=== PATIENT | female | born 1955 | race Two or more races ===

== ENCOUNTER 2021-04-20 08:05 | Outpatient (CLI) | payer OTHER | END 2021-04-20 18:57 | disposition home or self-care (01) | LOC: LABW 08:05 | PROVIDERS: ATTEND Internal Medicine | DX: Z01.84 Encounter for antibody response examination (principal) | CPT/HCPCS: 36415; 86480; 86787 ==

== ENCOUNTER 2022-05-17 11:53 | Outpatient (CLI) | payer OTHER | END 2022-05-17 19:05 | disposition home or self-care (01) | LOC: RAD 11:53 | PROVIDERS: ATTEND Internal Medicine | DX: J40 Bronchitis, not specified as acute or chronic (principal) ==

== ENCOUNTER 2022-05-18 08:26 | Outpatient (CLI) | payer OTHER ==
[2022-05-18 09:05] LABS: PLATELET COUNT 249 K/uL (152-353)
== END 2022-05-18 19:13 | disposition home or self-care (01) ==
LOC: LABW 08:26
PROVIDERS: ATTEND Internal Medicine
DX: E11.9 Type 2 diabetes mellitus without complications (principal); R09.1 Pleurisy
CPT/HCPCS: 36415; 80053; 80061; 81002; 83036; 83880; 84439; 84443; 85027; 85379

== ENCOUNTER 2022-05-24 11:21 | Outpatient (CLI) | payer OTHER | END 2022-05-24 19:24 | disposition home or self-care (01) | LOC: US 11:21 | PROVIDERS: ATTEND Internal Medicine | DX: R79.89 Other specified abnormal findings of blood chemistry (principal) ==